=== PATIENT | male | born 1945 | race Caucasian/White ===

== ENCOUNTER 2020-03-09 11:29 | Inpatient (IN) | payer MEDICARE ==
[~2020-03-09] VITALS: Ht 170.2 cm; Wt 76.8 kg
[2020-03-09] MEDS ORDERED: NS 1,000 ML IV SCH (11:37)
--- NOTE | 2020-03-09 11:57 | REP ---
Clinical: Altered mental status . Findings: Age-related atrophy with periventricular leukomalacia and microvascular ischemic changes are appreciated. The ventricles and sulci are symmetric. Caba-white differentiation is maintained. There is no evidence for acute intracranial hemorrhage, mass/mass effect, pathology or infarction. No extra-axial fluid collection. Calvarium is intact. Paranasal sinuses and mastoid air cells are clear. Impression: Age related atrophy and microvascular ischemic changes. No acute intracranial hemorrhage, infarction, or mass/mass effect. Electronically Signed by Anoop Osorio MD 03/09/2020 11:49 A
--- NOTE | 2020-03-09 12:00 | REP ---
Clinical: Altered mental status. Technique: Axial noncontrast images from the skull base to the thoracic inlet with coronal and sagittal re-formations. Findings: Advanced multilevel degenerative changes include endplate sclerosis, osteophytosis, disc space narrowing and facet arthropathy. Moderate canal stenosis at C4-5 and C5-6 narrowing the AP diameter of the spinal canal to approximately 6.8 mm due to posterior ligamentous calcifications and small posterior osteophytes. Straightening of normal lordosis noted with stable alignment. Posterior elements and spinous processes are intact. No acute fracture / compression injury or subluxation. Impression: Multilevel degenerative spondylosis. No acute fracture / compression injury or subluxation. Electronically Signed by Anoop Osorio MD 03/09/2020 11:51 A
[2020-03-09 12:14] LABS: VENOUS BASE EXCESS -4.5 (-2.0-2.0); VENOUS HCO3 21.8 MEQ/L (23.0-27.0); VENOUS O2 SATURATION 55.3 % (60.0-80.0); VENOUS PARTIAL PRESSURE CO2 44.3 mmHg (38.0-50.0); VENOUS PARTIAL PRESSURE O2 31.2 mmHg (30.0-50.0); VENOUS STANDARD HCO3 19.6 MEQ/L; VENOUS TOTAL CO2 23.2 MEQ/L (24.0-28.0)
[2020-03-09 12:18] LABS: BASO % 0.1 % (0.0-1.0); HEMATOCRIT 53.6 % (42.0-52.0); HEMOGLOBIN 18.3 g/dl (13.5-17.5); LYMPH # 1.1 10^3/uL (1.5-5.0); MEAN CORPUSCULAR HEMOGLOBIN 28.7 pg (27.0-33.0); MEAN CORPUSCULAR HGB CONC 34.1 g/dl (32.0-36.5); MONO # 1.4 10^3/uL (0.0-0.8); MONO % 9.9 % (0.0-5.0); NEUTROPHILS # 11.5 10^3/uL (1.5-8.5); NEUTROPHILS % 80.7 % (36.0-66.0); PLATELET COUNT, AUTOMATED 320 10^3/uL (150-450); RED BLOOD COUNT 6.38 10^6/uL (4.30-6.10); WHITE BLOOD COUNT 14.2 10^3/uL (4.0-10.0)
[2020-03-09 12:43] LABS: OSMOLALITY SERUM 320 MOSM/KG (280-301)
[2020-03-09] MEDS ORDERED: NS 1,000 ML IV ONE (12:45)
[2020-03-09 12:54] LABS: ALBUMIN 3.3 GM/DL (3.2-5.2); ALT/SGPT 26 U/L (12-78); BILIRUBIN,DIRECT 1.1 MG/DL (0.0-0.2); BILIRUBIN,TOTAL 1.9 MG/DL (0.2-1.0); TOTAL PROTEIN 8.1 GM/DL (6.4-8.2)
--- NOTE | 2020-03-09 12:58 | REP ---
Clinical: Altered mental status . Comparison: None . Findings: The mediastinum and cardiac silhouette are stable and within normal limits for portable technique. The lung marlow are clear without acute consolidation, effusion, or pneumothorax. Skeletal structures are intact. Impression: No acute cardiopulmonary process appreciated. Electronically Signed by Anoop Osorio MD 03/09/2020 12:49 P
[2020-03-09] MEDS ORDERED: ISOVUE-370 76% 100ML VIAL As Ordered ONE (13:13)
[2020-03-09 13:22] LABS: AMPHETAMINES LEVEL URINE NEGATIVE (NEGATIVE); BARBITURATES URINE NEGATIVE (NEGATIVE); BENZODIAZEPINES URINE NEGATIVE (NEGATIVE); CANNABINOIDS URINE NEGATIVE (NEGATIVE); COCAINE METABOLITE URINE NEGATIVE (NEGATIVE); METHADONE URINE NEGATIVE (NEGATIVE); OPIATES URINE NEGATIVE (NEGATIVE); PHENCYCLIDINE URINE NEGATIVE (NEGATIVE)
--- NOTE | 2020-03-09 13:48 | REP ---
Clinical: Pyelonephritis. Abdominal pain. Technique: Axial contrast enhanced images from the lung bases to the pubic symphysis using 100 ml Isovue 370 intravenous contrast material with coronal and sagittal re-formations. Findings: Lung bases are clear. Liver, spleen, pancreas, gallbladder, and bilateral adrenal glands are normal. The kidneys demonstrate age-related cortical thinning along with few scattered bilateral simple cysts and mild chronic perinephric stranding. No hydronephrosis. The enteric system is without obstruction or acute inflammatory process. Normal terminal ileum and appendix are identified in the right lower quadrant. Few scattered sigmoid diverticula noted without acute diverticulitis. Pelvis demonstrates mild bladder wall thickening and prostatomegaly. No pelvic fluid. No ascites. No free air. No adenopathy. Abdominal aorta without aneurysm or dissection. Musculoskeletal structures demonstrate age-related degenerative changes without acute process. Impression: 1. Urinary tract system demonstrates age-related renal changes and simple cysts without CT evidence for acute pyelonephritis. The bladder demonstrates mild wall thickening consistent with chronic outlet obstruction. Prostatomegaly noted. 2. Few scattered sigmoid diverticula without acute diverticulitis. 3. No acute abdominopelvic pathology appreciated. Electronically Signed by Anoop Osorio MD 03/09/2020 01:40 P
[2020-03-09 13:57] LABS: ACETAMINOPHEN LEVEL < 2.0 UG/ML (10.0-30.0); ETHYL ALCOHOL (ETHANOL) < 0.003 % (0.000-0.010)
[2020-03-09] MEDS ORDERED: GLUCAGON INJ 1MG VIAL SC PRN (16:30)
[2020-03-09] MEDS ORDERED: DEXTROSE 50% 50 ML SYRINGE IV PRN (16:30)
[2020-03-09] MEDS ORDERED: GLUCOSE 4GM CHEW TABLET PO PRN (16:30)
[2020-03-09] MEDS: HumaLOG INSULIN (NovoLOG) PER UNIT SC SCH ×2 (17:30→20:20)
--- NOTE | 2020-03-09 17:51 | ECGEPIP ---
[facility] - ED Test Date: 2020-03-09 Pat Name: SIDRA LOZANO Department: Room: - Gender: Male C T Tech: TC : 1945 Requested By: Ting Kim Order Number: [id number] Reading MD: Ting Kim Measurements Intervals [place] Rate: 149 P: [place]: 0 QRS: 19 QRSD: 86 T: -2 QT: 276 QTc: 435 Interpretive Statements sinus tachycardia vs atrial flutter No prior NONSPECIFIC ST & T-WAVE ABNORMALITY ABNORMAL RHYTHM ECG Electronically Signed on 03-09-2020 17:51:35 EDT by Ting Kim
--- NOTE | 2020-03-09 17:54 | ECGEPIP ---
[facility] - ED Test Date: 2020-03-09 Pat Name: SIDRA LOZANO Department: Room: - Gender: Male Plant Inspector: JFLUCY : 1945 Requested By: Sukhi Cespedes Order Number: [id number] Reading MD: Ting Kim Measurements Intervals [place] Rate: 101 P: [place]: 0 QRS: 76 QRSD: 90 T: 57 QT: 336 QTc: 436 Interpretive Statements baseline artifact excessive - sinus with PACs vs atrial fib SEPTAL MYOCARDIAL INFARCTION, PROBABLY OLD Electronically Signed on 03-09-2020 17:53:47 EDT by Ting Kim
[2020-03-09 18:01] VITALS: BP 136/79
[2020-03-09] MEDS: NS 1,000 ML IV SCH ×2 (18:08→22:34)
[2020-03-09] MEDS: cefTRIAXone SOD 2 GM in D5W MINI-BAG PLUS 50 ML IV SCH (18:16)
[2020-03-09 20:00] VITALS: BP 102/68
[2020-03-09] MEDS: DOCUSATE SODIUM 100 MG CAP PO SCH (20:19)
--- NOTE | 2020-03-09 20:27 | HPEPDOC ---
General Date of Admission 03/09/20 Date of Service: Mar 09, 2020 Chief Complaint The patient is a 75-year-old male admitted with a reason for visit of [facility]. 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 He reports that he fell in the middle of night when he had gone to the bathroom. Says he was reaching for something and then he found himself on the floor. Denies loss of consciousness. Says he started calling for help when he heard his neighbor outside. Neighbors found him on the floor in the bathroom soiled in stool and urine and called the EMS. He denies any injury. On arrival to the ED he was disheveled, soiled, long unkept nails. He was confused knew only his name could not him any history. On my interview he could tell me that he was in the hospital but could not tell me where or what was the name. He could tell me his home address in [facility], He told me he spends From January to Jul at is trailer in [place] for the past 15 years and goes back an forth to [place] to take take of the house, cut the grass. He drives. he tells me his PMD is at [facility]. Told me he ran out of his blood pressure and diabetes medicine 1 month ago. He knew it was 2019 but told me it was . His history is unreliable. Work up in the ED showed elevated lactate, dehydration, UTI, elevated blood glucose. He was admitted for UTI, dehydration, acute metabolic encephalopathy. 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 Both ) Social History * Smoker: Denies Alcohol: Denies Drugs: denies A-FIB/CHADSVASC A-FIB History Current/History of A-Fib/PAF?: No Review of Systems Constitutional: Denies: Chills, Fever, Night Sweats Eyes: Denies: Pain, Vision change ENT: Denies: Head Aches, Ear Pain, Dysphagia Skin: Denies: Rash, Lesions, Breakdown Pulmonary: Denies: Dyspnea, Cough Cardiovascular: Denies: Chest Pain, Palpitations, Orthopnea, Paroxysmal Noc. Dyspnea, Lt Headedness Gastrointestinal: Denies: Nausea, Vomiting, Abdominal Pain, Diarrhea Genitourinary: Denies: Dysuria, Frequency, Incontinence, Retention Hematologic: Denies: Bruising, Bleeding Excessively Musculoskeletal: Denies: Neck Pain, Back Pain, Joint Pain, Muscle Pain Psych: Reports: Memory Issues Physical Examination General Exam: Positive: Alert, Cooperative, No Acute Distress Eye Exam: Positive: PERRLA, Conjunctiva & lids normal, EOMI; Negative: Sclera icteric ENT Exam: Positive: Atraumatic, Mucous membr. moist/pink, Pharynx Normal Neck Exam: Positive: Supple; Negative: JVD, thyromegaly Chest Exam: Positive: Clear to auscultation, Normal air movement Heart Exam: Positive: Rate Normal, Irregular Rhythm, Normal S1, Normal S2 Telemetry: Positive: Atrial fibrillation Abdomen Exam: Positive: Normal bowel sounds, Soft; Negative: Tenderness, Hepatospenomegaly Extremity Exam: Negative: Clubbing, Cyanosis, Edema Skin Exam: Positive: Breakdown (on randy scrotal skin at eh bottom), Other skin issue (redness on the sacram and the groin) Vital Signs Vital Signs Date Time Temp Pulse Resp B/P (MAP) Pulse Ox O2 Delivery O2 Flow Rate FiO2 03/09/20 15:45 93 16 106/50 (68) 97 Room Air 03/09/20 11:59 97.3 Laboratory Data Labs 24H Laboratory Tests 2 03/09/20 11:37: Osmolality 320H, Total Bilirubin 1.9H, Direct Bilirubin 1.1H, Aspartate Amino Transf (AST/SGOT) 34, Alanine Aminotransferase (ALT/SGPT) 26, Alkaline Phosphatase 106, Ammonia 13, Total Protein 8.1, Albumin 3.3, Albumin/Globulin Ratio 0.7, Thyroid Stimulating Hormone (TSH) 1.010, Salicylates Level 3.0L, Acetaminophen Level < 2.0L, Ethyl Alcohol Level < 0.003 03/09/20 11:56: Bedside Glucose (Misc Panel) 265H 03/09/20 11:58: POC Lactate (Misc Panel) 3.57*H 03/09/20 12:03: POC Glucose (Misc Panel) 245H, POC Sodium (Misc Panel) 140, POC Potassium (Misc Panel) 3.9, POC Chloride (Misc Panel) 101, POC Total CO2 (Misc Panel) 22.0L, POC Blood Urea Nitrogen (Misc Panel 51H, POC Ionized Calcium (Misc Panel) 4.8, POC Creatinine (Misc Panel) 1.1, POC Hematocrit (Misc Panel) 55.0H 03/09/20 12:04: POC Troponin I (Misc) 0.00 03/09/20 12:05: Blood Gas Bicarbonate Standard 19.6, Venous Blood pH 7.310L, Venous Blood Partial Pressure CO2 44.3, Venous Blood Partial Pressure O2 31.2, Venous Blood Total Carbon Dioxide 23.2L, Venous Blood HCO3 21.8L, Venous Blood Oxygen Saturation 55.3L, Venous Blood Base Excess -4.5L 03/09/20 12:06: Immature Granulocyte % (Auto) 1.3, Neutrophils (%) (Auto) 80.7H, Lymphocytes (%) (Auto) 8.0L, Monocytes (%) (Auto) 9.9H, Eosinophils (%) (Auto) 0.0, Basophils (%) (Auto) 0.1, Neutrophils # (Auto) 11.5H, Lymphocytes # (Auto) 1.1L, Monocytes # (Auto) 1.4H, Eosinophils # (Auto) 0.0, Basophils # (Auto) 0.0, Nucleated Red Blood Cells % (auto) 0.0 03/09/20 12:42: Urine Color SEDRICK, Urine Appearance TURBIDH, Urine pH 5.0, Urine Specific [place] 1.018, Urine Protein 2+H, Urine Glucose (UA) 1+H, Urine Ketones TRACEH, Urine Blood 2+H, Urine Nitrite NEGATIVE, Urine Bilirubin NEGATIVE, Urine Urobilinogen 4.0H, Urine Leukocyte Esterase 3+H, Urine WBC (Auto) TNTCH, Urine RBC (Auto) 92H, Urine Hyaline Casts (Auto) 0, Urine Bacteria (Auto) 1+H, Urine Squamous Epithelial Cells 0, Urine Mucus (Auto) SMALL, Urine Sperm (Auto) , Urine Opiates Screen NEGATIVE, Urine Methadone Screen NEGATIVE, Urine Barbiturates Screen NEGATIVE, Urine Phencyclidine Screen NEGATIVE, Urine Amphetamines Screen NEGATIVE, Urine Benzodiazepines Screen NEGATIVE, Urine Cocaine Metabolite Screen NEGATIVE, Urine Cannabinoids Screen NEGATIVE CBC/BMP Laboratory Tests 03/09/20 12:06 Microbiology Microbiology 03/09/20 Respiratory Virus Panel (PCR) (MONY) - Final, Complete 03/09/20 Urine Culture, Received Pending Assessment/Plan 75 year old male with past medical 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 He reports that he fell in the m iddle of night when he had gone to the bathroom. Says he was reaching for something and then he found himself on the floor. Denies loss of consciousness. Says he started calling for help when he heard his neighbor outside. Neighbors found him on the floor in the bathroom soiled in stool and urine and called the EMS. Work up in the ED showed elevated lactate, dehydration, UTI, elevated blood glucose. He was admitted for UTI, dehydration, acute metabolic encephalopathy. Dehydration elevated BUN, elevated hematocrit will give IVF UTI/ contaminated urine Dirty UA though denies any symptoms and was soiled when he came in. cultures sent. will give ceftriaxone Lactacidosis due to dehydration IVF Acute metabolic encephalopathy Vs delirium on the back ground of mild dementia due to dehydration and possible infection Abnormal EKG afib vs sinus with PACs. there are lots of artifacts will get another one tomorrow now rate around 90 to 100. Diabetes lispro sliding scale Hypertension BP not elevated at present. Plan / VTE VTE Prophylaxis Ordered?: Yes STEPHAN WALKER MD Mar 09, 2020 17:03
[2020-03-09] MEDS: NYSTATIN 100,000 UNITS/GM TOPICAL PWD 15 GM TOP SCH (21:00)
[2020-03-10] VITALS: BP 133/73
[2020-03-10 04:00] VITALS: BP 142/70
[2020-03-10 06:52] LABS: BASO % 0.2 % (0.0-1.0); EOS # 0.1 10^3/uL (0.0-0.5); EOS % 0.8 % (0.0-3.0); HEMATOCRIT 42.2 % (42.0-52.0); LYMPH # 1.6 10^3/uL (1.5-5.0); LYMPH % 14.6 % (24.0-44.0); MEAN CORPUSCULAR HEMOGLOBIN 28.7 pg (27.0-33.0); MEAN CORPUSCULAR HGB CONC 34.4 g/dl (32.0-36.5); MEAN CORPUSCULAR VOLUME 83.6 fl (80.0-96.0); MONO # 1.3 10^3/uL (0.0-0.8); MONO % 11.2 % (0.0-5.0); NEUTROPHILS # 8.1 10^3/uL (1.5-8.5); NEUTROPHILS % 72.4 % (36.0-66.0); PLATELET COUNT, AUTOMATED 232 10^3/uL (150-450); RED BLOOD COUNT 5.05 10^6/uL (4.30-6.10); WHITE BLOOD COUNT 11.2 10^3/uL (4.0-10.0)
[2020-03-10 07:07] LABS: HEMOGLOBIN 14.5 g/dl (13.5-17.5)
[2020-03-10 07:16] LABS: BLOOD UREA NITROGEN 32 MG/DL (7-18); CALCIUM LEVEL 8.4 MG/DL (8.8-10.2); CARBON DIOXIDE LEVEL 23 MEQ/L (21-32); CHLORIDE LEVEL 105 MEQ/L (98-107); CREATININE FOR GFR 0.84 MG/DL (0.70-1.30); GLOMERULAR FILTRATION RATE > 60.0 (>42); GLUCOSE, FASTING 235 MG/DL (70-100); POTASSIUM SERUM 3.4 MEQ/L (3.5-5.1); SODIUM LEVEL 138 MEQ/L (136-145)
[2020-03-10 07:33] VITALS: BP 112/64
[2020-03-10] MEDS: HumaLOG INSULIN (NovoLOG) PER UNIT SC SCH ×4 (09:13→21:00)
[2020-03-10] MEDS: ENOXAPARIN 40MG/0.4ML SYRINGE (J1650 PER 10MG) SC SCH (09:13)
[2020-03-10] MEDS: DOCUSATE SODIUM 100 MG CAP PO SCH ×2 (09:13→20:48)
[2020-03-10] MEDS: NS 1,000 ML IV SCH (09:14)
[2020-03-10] MEDS: NYSTATIN 100,000 UNITS/GM TOPICAL PWD 15 GM TOP SCH ×2 (09:16→20:49)
[2020-03-10] MEDS ORDERED: POTASSIUM CHLORIDE 10 MEQ SR TABLET PO ONE (11:00)
--- NOTE | 2020-03-10 11:30 | IPNPDOC ---
Subjective Date Seen The patient was seen on 03/10/20. Subjective Chief Complaint/HPI More oriented today. Knows he is in a hospital in [place]. He told me that his closest per son of contact is Karen his sister in law who lives in [facility]. Says that he is very weak and cannot walk Objective Physical Examination General Exam: Positive: Alert, Cooperative, No Acute Distress Eye Exam: Positive: PERRLA, Conjunctiva & lids normal, EOMI; Negative: Sclera icteric ENT Exam: Positive: Atraumatic, Mucous membr. moist/pink, Pharynx Normal Neck Exam: Positive: Supple; Negative: JVD, thyromegaly Chest Exam: Positive: Clear to auscultation, Normal air movement Heart Exam: Positive: Rate Normal, Irregular Rhythm, Normal S1, Normal S2 Telemetry: Positive: Atrial fibrillation Abdomen Exam: Positive: Normal bowel sounds, Soft; Negative: Tenderness, Hepatospenomegaly Extremity Exam: Negative: Clubbing, Cyanosis, Edema Skin Exam: Positive: Breakdown (on randy scrotal skin at eh bottom), Other skin issue (redness on the sacram and the groin) Assessment /Plan Assessment 75 year old male with past medical history 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 He reports that he fell in the middle of night when he had gone to the bathroom. Says he was reaching for something and then he found himself on the floor. Denies loss of consciousness. Says he started calling for help when he heard his neighbor outside. Neighbors found him on the floor in the bathroom soiled in stool and urine and called the EMS. Work up in the ED showed elevated lactate, dehydration, UTI, elevated blood glucose. He was admitted for UTI, dehydration, acute metabolic encephalopathy. Dehydration corrected, IV stopped UTI/ contaminated urine Dirty UA though denies any symptoms and was soiled when he came in. cultures sent. ceftriaxone Lactacidosis due to dehydration Acute metabolic encephalopathy Vs delirium on the back ground of mild dementia due to dehydration and possible infection Abnormal EKG afib vs sinus with PACs. There are lots of artifacts New EKG shows ectopic atrial rhythm. now rate around 70 to 80 Diabetes lispro sliding scale Hypertension BP not elevated at present. Generalized deconditioning PT and OT Plan/VTE VTE Prophylaxis Ordered?: Yes VS, I&O, 24H, Fishbone Vital Signs/I&O Vital Signs Date Time Temp Pulse Resp B/P (MAP) Pulse Ox O2 Delivery O2 Flow Rate FiO2 03/10/20 07:33 97.6 74 20 112/64 (80) 97 Room Air I&O- Last 24 Hours up to 6 AM 03/10/20 06:00 Intake Total 1800 ml Output Total 0 ml Balance 1800 ml Laboratory Data 24H LABS Laboratory Tests 2 03/09/20 11:37: Osmolality 320H, Total Bilirubin 1.9H, Direct Bilirubin 1.1H, Aspartate Amino Transf (AST/SGOT) 34, Alanine Aminotransferase (ALT/SGPT) 26, Alkaline Phosphatase 106, Ammonia 13, Total Protein 8.1, Albumin 3.3, Albumin/Globulin Ratio 0.7, Thyroid Stimulating Hormone (TSH) 1.010, Salicylates Level 3.0L, Acetaminophen Level < 2.0L, Ethyl Alcohol Level < 0.003 03/09/20 11:56: Bedside Glucose (Misc Panel) 265H 03/09/20 11:58: POC Lactate (Misc Panel) 3.57*H 03/09/20 12:03: POC Glucose (Misc Panel) 245H, POC Sodium (Misc Panel) 140, POC Potassium (Misc Panel) 3.9, POC Chloride (Misc Panel) 101, POC Total CO2 (Misc Panel) 22.0L, POC Blood Urea Nitrogen (Misc Panel 51H, POC Ionized Calcium (Misc Panel) 4.8, POC Creatinine (Misc Panel) 1.1, POC Hematocrit (Misc Panel) 55.0H 03/09/20 12:04: POC Troponin I (Misc) 0.00 03/09/20 12:05: Blood Gas Bicarbonate Standard 19.6, Venous Blood pH 7.310L, Venous Blood Partial Pressure CO2 44.3, Venous Blood Partial Pressure O2 31.2, Venous Blood Total Carbon Dioxide 23.2L, Venous Blood HCO3 21.8L, Venous Blood Oxygen Saturation 55.3L, Venous Blood Base Excess -4.5L 03/09/20 12:06: Immature Granulocyte % (Auto) 1.3, Neutrophils (%) (Auto) 80.7H, Lymphocytes (%) (Auto) 8.0L, Monocytes (%) (Auto) 9.9H, Eosinophils (%) (Auto) 0.0, Basophils (%) (Auto) 0.1, Neutrophils # (Auto) 11.5H, Lymphocytes # (Auto) 1.1L, Monocytes # (Auto) 1.4H, Eosinophils # (Auto) 0.0, Basophils # (Auto) 0.0, Nucleated Red Blood Cells % (auto) 0.0 03/09/20 12:42: Urine Color SEDRICK, Urine Appearance TURBIDH, Urine pH 5.0, Urine Specific [place] 1.018, Urine Protein 2+H, Urine Glucose (UA) 1+H, Urine Ketones TRACEH, Urine Blood 2+H, Urine Nitrite NEGATIVE, Urine Bilirubin NEGATIVE, Urine Urobilinogen 4.0H, Urine Leukocyte Esterase 3+H, Urine WBC (Auto) TNTCH, Urine RBC (Auto) 92H, Urine Hyaline Casts (Auto) 0, Urine Bacteria (Auto) 1+H, Urine Squamous Epithelial Cells 0, Urine Mucus (Auto) SMALL, Urine Sperm (Auto) , Urine Opiates Screen NEGATIVE, Urine Methadone Screen NEGATIVE, Urine Barbiturates Screen NEGATIVE, Urine Phencyclidine Screen NEGATIVE, Urine Amphetamines Screen NEGATIVE, Urine Benzodiazepines Screen NEGATIVE, Urine Cocaine Metabolite Screen NEGATIVE, Urine Cannabinoids Screen NEGATIVE 03/09/20 18:09: Bedside Glucose (Misc Panel) 204H 03/09/20 18:15: Lactic Acid Followup at 4 Hours 2.0 03/09/20 20:07: Bedside Glucose (Misc Panel) 231H 03/10/20 06:11: Immature Granulocyte % (Auto) 0.8, Neutrophils (%) (Auto) 72.4H, Lymphocytes (%) (Auto) 14.6L, Monocytes (%) (Auto) 11.2H, Eosinophils (%) (Auto) 0.8, Basophils (%) (Auto) 0.2, Neutrophils # (Auto) 8.1, Lymphocytes # (Auto) 1.6, Monocytes # (Auto) 1.3H, Eosinophils # (Auto) 0.1, Basophils # (Auto) 0.0, Nucleated Red Blood Cells % (auto) 0.0, Anion Gap 10, Glomerular Filtration Rate > 60.0, Calcium Level 8.4L 03/10/20 07:23: Lactic Acid Level 1.5 CBC/BMP Laboratory Tests 03/09/20 12:06 03/10/20 06:11 Microbiology Microbiology 03/09/20 Blood Culture, Received Pending 03/09/20 Respiratory Virus Panel (PCR) (MONY) - Final, Complete 03/09/20 Urine Culture, Received Pending STEPHAN WALKER MD Mar 10, 2020 11:30
--- NOTE | 2020-03-10 11:31 | ECGEPIP ---
[facility] Test Date: 2020-03-10 Pat Name: SIDRA LOZANO Department: Room: Y3439-15 Gender: Male Ceo & Board Director: OFELIA : 1945 Requested By: STEPHAN WALKER Order Number: [id number] Reading MD: John Riley Measurements Intervals [place] Rate: 80 P: 247 MT: 160 QRS: 17 QRSD: 95 T: 19 QT: 354 QTc: 409 Interpretive Statements ECTOPIC ATRIAL RHYTHM NONSPECIFIC T-WAVE ABNORMALITY ABNORMAL RHYTHM ECG Last tracing on 03/09/20 at 14:31. PACs were noted and there is now better R wave p progression. Electronically Signed on 03-10-2020 11:30:48 EDT by John Riley
[2020-03-10 11:46] VITALS: BP 106/63
[2020-03-10] MEDS: GLIMEPIRIDE 2 MG TAB PO SCH (13:38)
[2020-03-10 14:00] VITALS: BP 110/64
[2020-03-10] MEDS: cefTRIAXone SOD 2 GM in D5W MINI-BAG PLUS 50 ML IV SCH (18:13)
[2020-03-10 22:00] VITALS: BP 121/75
[2020-03-11 06:00] VITALS: BP 115/58
[2020-03-11 07:04] LABS: BASO % 0.3 % (0.0-1.0); EOS # 0.2 10^3/uL (0.0-0.5); EOS % 2.6 % (0.0-3.0); HEMATOCRIT 39.8 % (42.0-52.0); HEMOGLOBIN 13.3 g/dl (13.5-17.5); LYMPH # 1.5 10^3/uL (1.5-5.0); LYMPH % 20.7 % (24.0-44.0); MEAN CORPUSCULAR HEMOGLOBIN 28.1 pg (27.0-33.0); MEAN CORPUSCULAR HGB CONC 33.4 g/dl (32.0-36.5); MEAN CORPUSCULAR VOLUME 84.1 fl (80.0-96.0); MONO # 0.9 10^3/uL (0.0-0.8); MONO % 12.8 % (0.0-5.0); NEUTROPHILS # 4.5 10^3/uL (1.5-8.5); NEUTROPHILS % 62.6 % (36.0-66.0); PLATELET COUNT, AUTOMATED 217 10^3/uL (150-450); RED BLOOD COUNT 4.73 10^6/uL (4.30-6.10); WHITE BLOOD COUNT 7.2 10^3/uL (4.0-10.0)
[2020-03-11 07:27] LABS: BLOOD UREA NITROGEN 22 MG/DL (7-18); CALCIUM LEVEL 8.6 MG/DL (8.8-10.2); CARBON DIOXIDE LEVEL 26 MEQ/L (21-32); CHLORIDE LEVEL 105 MEQ/L (98-107); CREATININE FOR GFR 0.77 MG/DL (0.70-1.30); GLOMERULAR FILTRATION RATE > 60.0 (>42); GLUCOSE, FASTING 84 MG/DL (70-100); POTASSIUM SERUM 3.8 MEQ/L (3.5-5.1); SODIUM LEVEL 137 MEQ/L (136-145)
[2020-03-11] MEDS: HumaLOG INSULIN (NovoLOG) PER UNIT SC SCH ×4 (07:30→20:54)
[2020-03-11] MEDS: NYSTATIN 100,000 UNITS/GM TOPICAL PWD 15 GM TOP SCH ×2 (09:11→20:09)
[2020-03-11] MEDS: ENOXAPARIN 40MG/0.4ML SYRINGE (J1650 PER 10MG) SC SCH (09:11)
[2020-03-11] MEDS: DOCUSATE SODIUM 100 MG CAP PO SCH ×2 (09:11→20:09)
[2020-03-11] MEDS: GLIMEPIRIDE 2 MG TAB PO SCH (09:11)
--- NOTE | 2020-03-11 12:18 | IPNPDOC ---
Subjective Date Seen The patient was seen on 03/11/20. Subjective Chief Complaint/HPI Complains of generalized weakness. denies any other complaints. Objective Physical Examination General Exam: Positive: Alert, Cooperative, No Acute Distress Eye Exam: Positive: PERRLA, Conjunctiva & lids normal, EOMI; Negative: Sclera icteric ENT Exam: Positive: Atraumatic, Mucous membr. moist/pink, Pharynx Normal Neck Exam: Positive: Supple; Negative: JVD, thyromegaly Chest Exam: Positive: Clear to auscultation, Normal air movement Heart Exam: Positive: Rate Normal, Irregular Rhythm, Normal S1, Normal S2 Telemetry: Positive: Atrial fibrillation Abdomen Exam: Positive: Normal bowel sounds, Soft; Negative: Tenderness, Hepatospenomegaly Extremity Exam: Negative: Clubbing, Cyanosis, Edema Skin Exam: Positive: Breakdown (on randy scrotal skin at bottom), Other skin issue (redness on the sacram and the groin) Assessment /Plan Assessment 75 year old male with past medical history of 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 He reports that he fell in the middle of night when he had gone to the bathroom. Says he was reaching for something and then he found himself on the floor. Denies loss of consciousness. Says he started calling for help when he heard his neighbor outside. Neighbors found him on the floor in the bathroom soiled in stool and urine and called the EMS. Work up in the ED showed elevated lactate, dehydration, UTI, elevated blood glucose. He was admitted for UTI, dehydration, acute metabolic encephalopathy. Patient has daughter Crystal lives in [place] . As per her patient has dementia. Dehydration corrected UTI/ contaminated urine Dirty UA though denies any symptoms and was soiled when he came in. cultures E faecalis Changed to ampicillin Lactacidosis due to dehydration Acute metabolic encephalopathy on the back ground of dementia due to dehydration and possible infection As per Crystal his was diagnosed with dementia several years ago. Abnormal EKG afib vs sinus with PACs. There are lots of artifacts New EKG shows ectopic atrial rhythm. now rate around 70 to 80 Dementia As per EMS noted his home was dirty with stool all over, He was found in the bathroom soiled with Feces unknown ho long he was down he claims about 1 to 2 hours. will consult PFS Diabetes lispro sliding scale Hypertension BP not elevated at present. no meds . Dementia was very disheveled and soiled on presentation says eats at the diner or TV diners. Fall at home Generalized deconditioning and gait instability PT and OT Plan/VTE VTE Prophylaxis Ordered?: Yes VS, I&O, 24H, Fishbone Vital Signs/I&O Vital Signs Date Time Temp Pulse Resp B/P (MAP) Pulse Ox O2 Delivery O2 Flow Rate FiO2 03/11/20 06:00 99.1 75 16 115/58 (77) 95 Room Air I&O- Last 24 Hours up to 6 AM 03/11/20 07:00 Intake Total 1130 ml Output Total 0 ml Balance 1130 ml Laboratory Data 24H LABS Laboratory Tests 2 03/10/20 07:23: Lactic Acid Level 1.5 03/10/20 11:16: Bedside Glucose (Misc Panel) 183H 03/10/20 16:12: Bedside Glucose (Misc Panel) 220H 03/10/20 20:26: Bedside Glucose (Misc Panel) 127H Microbiology Microbiology 03/09/20 Blood Culture - Preliminary, Resulted No growth after 24 hours . All specim... 03/09/20 Respiratory Virus Panel (PCR) (MONY) - Final, Complete 03/09/20 Urine Culture, Received Pending STEPHAN WALKER MD Mar 11, 2020 06:37
[2020-03-11 14:00] VITALS: BP 129/75
[2020-03-11] MEDS: AMPICILLIN SOD 1 GM in D5W 50 ML IV SCH ×2 (14:40→20:09)
[2020-03-11] MEDS ORDERED: FLEET ENEMA PR PRN (16:45)
[2020-03-11 22:00] VITALS: BP 125/66
[2020-03-12] MEDS: AMPICILLIN SOD 1 GM in D5W 50 ML IV SCH ×4 (01:34→19:55)
[2020-03-12 06:00] VITALS: BP 133/75
[2020-03-12 06:35] LABS: BASO % 0.4 % (0.0-1.0); EOS # 0.1 10^3/uL (0.0-0.5); EOS % 1.8 % (0.0-3.0); HEMATOCRIT 40.5 % (42.0-52.0); HEMOGLOBIN 13.8 g/dl (13.5-17.5); LYMPH # 1.7 10^3/uL (1.5-5.0); LYMPH % 21.5 % (24.0-44.0); MEAN CORPUSCULAR HEMOGLOBIN 28.7 pg (27.0-33.0); MEAN CORPUSCULAR HGB CONC 34.1 g/dl (32.0-36.5); MEAN CORPUSCULAR VOLUME 84.2 fl (80.0-96.0); MONO % 12.4 % (0.0-5.0); NEUTROPHILS # 4.8 10^3/uL (1.5-8.5); NEUTROPHILS % 62.7 % (36.0-66.0); PLATELET COUNT, AUTOMATED 205 10^3/uL (150-450); RED BLOOD COUNT 4.81 10^6/uL (4.30-6.10); WHITE BLOOD COUNT 7.7 10^3/uL (4.0-10.0)
[2020-03-12 06:59] LABS: BLOOD UREA NITROGEN 17 MG/DL (7-18); CALCIUM LEVEL 8.6 MG/DL (8.8-10.2); CARBON DIOXIDE LEVEL 24 MEQ/L (21-32); CHLORIDE LEVEL 105 MEQ/L (98-107); CREATININE FOR GFR 0.68 MG/DL (0.70-1.30); GLOMERULAR FILTRATION RATE > 60.0 (>42); GLUCOSE, FASTING 156 MG/DL (70-100); POTASSIUM SERUM 3.9 MEQ/L (3.5-5.1); SODIUM LEVEL 137 MEQ/L (136-145)
[2020-03-12] MEDS: ENOXAPARIN 40MG/0.4ML SYRINGE (J1650 PER 10MG) SC SCH (08:46)
[2020-03-12] MEDS: GLIMEPIRIDE 2 MG TAB PO SCH (08:46)
[2020-03-12] MEDS: DOCUSATE SODIUM 100 MG CAP PO SCH ×2 (08:46→19:55)
[2020-03-12] MEDS: NYSTATIN 100,000 UNITS/GM TOPICAL PWD 15 GM TOP SCH ×2 (08:47→19:55)
[2020-03-12] MEDS: HumaLOG INSULIN (NovoLOG) PER UNIT SC SCH (08:47)
--- NOTE | 2020-03-12 11:12 | IPNPDOC ---
Subjective Date Seen The patient was seen on 03/12/20. Subjective Chief Complaint/HPI Patient seen at bedside today. Alert and awake . Oriented to name and knows he is in hospital could not tell me today where the hospital is. Told me it was 1989. Does not remember getting an enema yesterday. Could not tell me if he had a bowel movement. Does not remember what he had for breakfast. Objective Physical Examination General Exam: Positive: Alert, Cooperative, No Acute Distress Eye Exam: Positive: PERRLA, Conjunctiva & lids normal, EOMI; Negative: Sclera icteric ENT Exam: Positive: Atraumatic, Mucous membr. moist/pink, Pharynx Normal Neck Exam: Positive: Supple; Negative: JVD, thyromegaly Chest Exam: Positive: Clear to auscultation, Normal air movement Heart Exam: Positive: Rate Normal, Irregular Rhythm, Normal S1, Normal S2 Telemetry: Positive: Atrial fibrillation Abdomen Exam: Positive: Normal bowel sounds, Soft; Negative: Tenderness, Hepatospenomegaly Extremity Exam: Negative: Clubbing, Cyanosis, Edema Skin Exam: Positive: Breakdown (on the scrotal skin at the bottom), Other skin issue (redness on the sacrum and the groin) Neuro Exam: Positive: Normal Speech, Strength at 5/5 X4 ext, Normal Tone Assessment /Plan Assessment 75 year old male with past medical history of 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 He reports that he fell in the middle of night when he had gone to the bathroom. Says he was reaching for something and then he found himself on the floor. Denies loss of consciousness. Says he started calling for help when he heard his neighbor outside. Neighbors found him on the floor in the bathroom soiled in stool and urine and called the EMS. Work up in the ED showed elevated lactate, dehydration, UTI, elevated blood glucose. He was admitted for UTI, dehydration, acute metabolic encephalopathy. Patient has daughter Crystal lives in [place] . As per her patient has dementia. Dementia was very disheveled and soiled on presentation, Home dirty as per EMS. says eats at the diner or TV diners. lives alone PFS to help with discharge planning. UTI/ contaminated urine Dirty UA though denies any symptoms and was soiled when he came in. cultures E faecalis could be contamination however unsure so will treat. Changed to ampicillin Dehydration corrected Lactacidosis due to dehydration Acute metabolic encephalopathy on the back ground of dementia due to dehydration and possible infection As per Crystal his was diagnosed with dementia several years ago. Abnormal EKG afib vs sinus with PACs. There are lots of artifacts New EKG shows ectopic atrial rhythm. now rate around 70 to 80 Diabetes glimepiride Hypertension BP not elevated at present. no meds . Fall at home Generalized deconditioning and gait instability PT and OT Plan/VTE VTE Prophylaxis Ordered?: Yes VS, I&O, 24H, Fishbone Vital Signs/I&O Vital Signs Date Time Temp Pulse Resp B/P (MAP) Pulse Ox O2 Delivery O2 Flow Rate FiO2 03/12/20 06:00 97.3 66 16 133/75 (94) 99 Room Air I&O- Last 24 Hours up to 6 AM 03/12/20 06:00 Intake Total 1850 ml Output Total 0 ml Balance 1850 ml Laboratory Data 24H LABS Laboratory Tests 2 03/11/20 11:32: Bedside Glucose (Misc Panel) 170H 03/11/20 16:29: Bedside Glucose (Misc Panel) 139H 03/11/20 20:43: Bedside Glucose (Misc Panel) 117H 03/12/20 05:35: Immature Granulocyte % (Auto) 1.2, Neutrophils (%) (Auto) 62.7, Lymphocytes (%) (Auto) 21.5L, Monocytes (%) (Auto) 12.4H, Eosinophils (%) (Auto) 1.8, Basophils (%) (Auto) 0.4, Neutrophils # (Auto) 4.8, Lymphocytes # (Auto) 1.7, Monocytes # (Auto) 1.0H, Eosinophils # (Auto) 0.1, Basophils # (Auto) 0.0, Nucleated Red Blood Cells % (auto) 0.0, Anion Gap 8, Glomerular Filtration Rate > 60.0, Calcium Level 8.6L CBC/BMP Laboratory Tests 03/12/20 05:35 Microbiology Microbiology 03/09/20 Blood Culture - Preliminary, Resulted No Growth after 48 hours. All Specime... 03/09/20 Respiratory Virus Panel (PCR) ([facility]) - Final, Complete 03/09/20 Urine Culture - Final, Complete Enterococcus Faecalis STEPHAN WALKER MD Mar 12, 2020 11:12
[2020-03-12 14:00] VITALS: BP 130/76
--- NOTE | 2020-03-12 19:35 | ECHO ---
DATE OF PROCEDURE: 03/12/2020 REFERRING PHYSICIAN: Dr. Goldie Lopez INDICATION: Syncope. Height 170 cm, weight 72 kg. DIMENSIONS: IVS: 1.3 LV: 3.7 LVPW: 1.3 LA: 3.7 Aorta: 2.8 IVC: 1.0 Mitral E wave velocity: 93 A wave: 96 E prime septal: 6.1 E prime lateral: 8.1 FINDINGS: The study is of acceptable technical quality. The patient is in sinus rhythm. Left ventricle is normal size. Mild left ventricular hypertrophy is noted. Overall likely normal left ventricular (LV) systolic function based on somewhat limited views. Estimated left ventricular ejection fraction (LVEF) around 65-70%. Right ventricle is normal size and systolic function. Both atria appear normal. Aortic valve is mildly sclerotic but has three cusps and preserved mobility. Mitral valve appears normal. Tricuspid valve also appears normal. Pulmonic valve was not well seen. No pericardial effusion is noted. Inferior vena cava is normal size. Aortic root is normal. Aortic arch and an abdominal aorta were not well seen. Doppler interrogation reveals competent aortic valve. There is trace mitral insufficiency and no significant tricuspid insufficiency. Mitral inflow pattern and tissue Doppler imaging of mitral annulus revealed likely grade 1 diastolic dysfunction. CONCLUSIONS: 1. Study is of acceptable technical quality, the patient is in sinus rhythm. 2. Normal LV size with mild left ventricular hypertrophy (LVH), preserved LV systolic function and grade 1 diastolic dysfunction. 3. No hemodynamically significant valvular disease. 5. Likely normal central venous pressure. 6. Unable to estimate pulmonary artery pressure. COMMENT: Study does not provide obvious explanation for syncopal event.
[2020-03-12 22:00] VITALS: BP 140/73
[2020-03-13] MEDS: AMPICILLIN SOD 1 GM in D5W 50 ML IV SCH ×4 (02:05→19:42)
[2020-03-13 06:00] VITALS: BP 145/75
[2020-03-13 06:33] LABS: BASO % 0.4 % (0.0-1.0); EOS # 0.2 10^3/uL (0.0-0.5); EOS % 2.4 % (0.0-3.0); HEMATOCRIT 42.2 % (42.0-52.0); HEMOGLOBIN 14.2 g/dl (13.5-17.5); LYMPH # 1.7 10^3/uL (1.5-5.0); LYMPH % 22.2 % (24.0-44.0); MEAN CORPUSCULAR HGB CONC 33.6 g/dl (32.0-36.5); MEAN CORPUSCULAR VOLUME 86.1 fl (80.0-96.0); MONO % 12.8 % (0.0-5.0); NEUTROPHILS # 4.8 10^3/uL (1.5-8.5); NEUTROPHILS % 60.8 % (36.0-66.0); PLATELET COUNT, AUTOMATED 206 10^3/uL (150-450); WHITE BLOOD COUNT 7.8 10^3/uL (4.0-10.0)
[2020-03-13 06:45] LABS: HEMOGLOBIN A1c 9.4 %
[2020-03-13 06:57] LABS: BLOOD UREA NITROGEN 15 MG/DL (7-18); CALCIUM LEVEL 8.9 MG/DL (8.8-10.2); CARBON DIOXIDE LEVEL 30 MEQ/L (21-32); CHLORIDE LEVEL 106 MEQ/L (98-107); GLOMERULAR FILTRATION RATE > 60.0 (>42); GLUCOSE, FASTING 149 MG/DL (70-100); POTASSIUM SERUM 4.1 MEQ/L (3.5-5.1); SODIUM LEVEL 142 MEQ/L (136-145)
[2020-03-13] MEDS: ENOXAPARIN 40MG/0.4ML SYRINGE (J1650 PER 10MG) SC SCH (08:19)
[2020-03-13] MEDS: DOCUSATE SODIUM 100 MG CAP PO SCH ×2 (08:19→19:42)
[2020-03-13] MEDS: NYSTATIN 100,000 UNITS/GM TOPICAL PWD 15 GM TOP SCH ×2 (08:20→19:42)
[2020-03-13] MEDS: GLIMEPIRIDE 2 MG TAB PO SCH ×2 (08:20→17:16)
[2020-03-13 14:00] VITALS: BP 116/69
--- NOTE | 2020-03-13 16:35 | IPNPDOC ---
Subjective Date Seen The patient was seen on 03/13/20. Subjective Chief Complaint/HPI No complaints today except for feeling very weak. Working with PT. Objective Physical Examination General Exam: Positive: Alert, Cooperative, No Acute Distress Eye Exam: Positive: PERRLA, Conjunctiva & lids normal, EOMI; Negative: Sclera icteric ENT Exam: Positive: Atraumatic, Mucous membr. moist/pink, Pharynx Normal Neck Exam: Positive: Supple; Negative: JVD, thyromegaly Chest Exam: Positive: Clear to auscultation, Normal air movement Heart Exam: Positive: Rate Normal, Irregular Rhythm, Normal S1, Normal S2 Telemetry: Positive: Atrial fibrillation Abdomen Exam: Positive: Normal bowel sounds, Soft; Negative: Tenderness, Hepatospenomegaly Extremity Exam: Negative: Clubbing, Cyanosis, Edema Skin Exam: Positive: Breakdown (on the scrotal skin at the bottom), Other skin issue (redness on the sacrum and the groin) Neuro Exam: Positive: Normal Speech, Strength at 5/5 X4 ext, Normal Tone Assessment /Plan Assessment 75 year old male with past medical history 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 He reports that he fell in the middle of night when he had gone to the bathroom. Says he was reaching for something and then he found himself on the floor. Denies loss of consciousness. Says he started calling for help when he heard his neighbor outside. Neighbors found him on the floor in the bathroom soiled in stool and urine and called the EMS. Work up in the ED showed elevated lactate, dehydration, UTI, elevated blood glucose. He was admitted for UTI, dehydration, acute metabolic encephalopathy. Patient has daughter Crystal lives in [place] . As per her patient has dementia. Dementia was very disheveled and soiled on presentation, Home dirty as per EMS. says eats at the diner or TV diners. lives alone [place] to help with discharge planning. UTI/ contaminated urine Dirty UA though denies any symptoms and was soiled when he came in. cultures E faecalis could be contamination however unsure so will treat. Changed to ampicillin Dehydration corrected Lactacidosis due to dehydration Acute metabolic encephalopathy on the back ground of dementia due to dehydration and possible infection As per Crystal his was diagnosed with dementia several years ago. Abnormal EKG afib vs sinus with PACs. There are lots of artifacts New EKG shows ectopic atrial rhythm. Telemetry in sinus rhythm now. ECHO: Study is of acceptable technical quality, the patient is in sinus rhythm. Normal LV size with mild left ventricular hypertrophy (LVH), preserved LV systolic function and grade 1 diastolic dysfunction. No hemodynamically significant valvular disease. Likely normal central venous pressure. Unable to estimate pulmonary artery pressure. Diabetes glimepiride Hypertension BP not elevated at present. no meds . Fall at home Generalized deconditioning and gait instability PT and OT Plan/VTE VTE Prophylaxis Ordered?: Yes VS, I&O, 24H, Fishbone Vital Signs/I&O Vital Signs Date Time Temp Pulse Resp B/P (MAP) Pulse Ox O2 Delivery O2 Flow Rate FiO2 03/13/20 14:00 97.6 82 17 116/69 (85) 97 Room Air I&O- Last 24 Hours up to 6 AM 03/13/20 06:00 Intake Total 1970 ml Balance 1970 ml Laboratory Data 24H LABS Laboratory Tests 2 03/12/20 16:36: Bedside Glucose (Misc Panel) 234H 03/12/20 21:11: Bedside Glucose (Misc Panel) 219H 03/13/20 06:13: Immature Granulocyte % (Auto) 1.4, Neutrophils (%) (Auto) 60.8, Lymphocytes (%) (Auto) 22.2L, Monocytes (%) (Auto) 12.8H, Eosinophils (%) (Auto) 2.4, Basophils (%) (Auto) 0.4, Neutrophils # (Auto) 4.8, Lymphocytes # (Auto) 1.7, Monocytes # (Auto) 1.0H, Eosinophils # (Auto) 0.2, Basophils # (Auto) 0.0, Nucleated Red Blood Cells % (auto) 0.0, Anion Gap 6L, Glomerular Filtration Rate > 60.0, Estimated Mean Plasma Glucose 223H, Hemoglobin A1c 9.4, Calcium Level 8.9 CBC/BMP Laboratory Tests 03/13/20 06:13 Microbiology Microbiology 03/09/20 Blood Culture - Preliminary, Resulted No Growth after 72 hours. All specime... 03/09/20 Respiratory Virus Panel (PCR) ([facility]) - Final, Complete 03/09/20 Urine Culture - Final, Complete Enterococcus Faecalis STEPHAN WALKER MD Mar 13, 2020 16:35
[2020-03-13 22:00] VITALS: BP 119/74
[2020-03-14] MEDS: AMPICILLIN SOD 1 GM in D5W 50 ML IV SCH ×4 (02:00→20:29)
[2020-03-14 06:00] VITALS: BP 142/80
[2020-03-14 07:35] LABS: BASO % 0.2 % (0.0-1.0); EOS # 0.2 10^3/uL (0.0-0.5); EOS % 2.4 % (0.0-3.0); HEMATOCRIT 41.8 % (42.0-52.0); HEMOGLOBIN 13.9 g/dl (13.5-17.5); LYMPH # 1.7 10^3/uL (1.5-5.0); LYMPH % 20.8 % (24.0-44.0); MEAN CORPUSCULAR HEMOGLOBIN 28.4 pg (27.0-33.0); MEAN CORPUSCULAR HGB CONC 33.3 g/dl (32.0-36.5); MEAN CORPUSCULAR VOLUME 85.5 fl (80.0-96.0); MONO # 0.8 10^3/uL (0.0-0.8); MONO % 10.1 % (0.0-5.0); NEUTROPHILS # 5.4 10^3/uL (1.5-8.5); NEUTROPHILS % 65.7 % (36.0-66.0); PLATELET COUNT, AUTOMATED 201 10^3/uL (150-450); RED BLOOD COUNT 4.89 10^6/uL (4.30-6.10); WHITE BLOOD COUNT 8.2 10^3/uL (4.0-10.0)
[2020-03-14 07:48] LABS: BLOOD UREA NITROGEN 14 MG/DL (7-18); CARBON DIOXIDE LEVEL 27 MEQ/L (21-32); CHLORIDE LEVEL 105 MEQ/L (98-107); CREATININE FOR GFR 0.68 MG/DL (0.70-1.30); GLOMERULAR FILTRATION RATE > 60.0 (>42); GLUCOSE, FASTING 154 MG/DL (70-100); POTASSIUM SERUM 3.7 MEQ/L (3.5-5.1); SODIUM LEVEL 137 MEQ/L (136-145)
[2020-03-14] MEDS: DOCUSATE SODIUM 100 MG CAP PO SCH ×2 (07:56→20:29)
[2020-03-14] MEDS: ENOXAPARIN 40MG/0.4ML SYRINGE (J1650 PER 10MG) SC SCH (07:56)
[2020-03-14] MEDS: GLIMEPIRIDE 2 MG TAB PO SCH ×2 (07:56→17:55)
[2020-03-14] MEDS: NYSTATIN 100,000 UNITS/GM TOPICAL PWD 15 GM TOP SCH ×2 (07:57→20:30)
--- NOTE | 2020-03-14 11:20 | IPNPDOC ---
Subjective Date Seen The patient was seen on 03/14/20. Subjective Chief Complaint/HPI No complaints this morning. Still very weak. as per PT he is getting fatigued very easily and can ambulate only a few feet. Objective Physical Examination General Exam: Positive: Alert, Cooperative, No Acute Distress Eye Exam: Positive: PERRLA, Conjunctiva & lids normal, EOMI; Negative: Sclera icteric ENT Exam: Positive: Atraumatic, Mucous membr. moist/pink, Pharynx Normal Neck Exam: Positive: Supple; Negative: JVD, thyromegaly Chest Exam: Positive: Clear to auscultation, Normal air movement Heart Exam: Positive: Rate Normal, Irregular Rhythm, Normal S1, Normal S2; Negative: Tachycardic, Bradycardic, Regular Rhythm, Gallops, Murmurs, Rubs Abdomen Exam: Positive: Normal bowel sounds, Soft; Negative: Tenderness, Hepatospenomegaly Extremity Exam: Negative: Clubbing, Cyanosis, Edema Skin Exam: Positive: Breakdown (on the scrotal skin at the bottom) Neuro Exam: Positive: Normal Speech, Strength at 5/5 X4 ext, Normal Tone Assessment /Plan Assessment 75 year old male with past medical history of CVA no residual weakness, diabetes, hypertension, right carotid endarterectomy who was at his trailer in [facility] where he fell down in the bathroom. He reports that he fell in the middle of night when he had gone to the bathroom. Says he was reaching for something and then he found himself on the floor. Denies loss of consciousness. Says he started calling for help when he heard his neighbor outside. Neighbors found him on the floor in the bathroom soiled in stool and urine and called the EMS. Work up in the ED showed elevated lactate, dehydration, UTI, elevated blood glucose. He was admitted for UTI, dehydration, acute metabolic encephalopathy. Patient has daughter Crystal lives in [place] . As per her patient has dementia. Dementia was very disheveled and soiled on presentation, Home dirty as per EMS. says eats at the diner or TV diners. lives alone [place] to help with discharge planning. UTI/ contaminated urine Dirty UA though denies any symptoms and was soiled when he came in. cultures E faecalis could be contamination however unsure so will treat. Changed to ampicillin Dehydration corrected Lactacidosis due to dehydration Acute metabolic encephalopathy on the back ground of dementia due to dehydration and possible infection As per Crystal his was diagnosed with dementia several years ago. Abnormal EKG afib vs sinus with PACs. There are lots of artifacts New EKG shows ectopic atrial rhythm. Telemetry in sinus rhythm now. ECHO: Study is of acceptable technical quality, the patient is in sinus rhythm. Normal LV size with mild left ventricular hypertrophy (LVH), preserved LV systolic function and grade 1 diastolic dysfunction. No hemodynamically significant valvular disease. Likely normal central venous pressure. Unable to estimate pulmonary artery pressure. Diabetes glimepiride Hypertension BP not elevated at present. no meds . Fall at home Generalized deconditioning and gait instability PT and OT Disposition: To continued rehab. Plan/VTE VTE Prophylaxis Ordered?: Yes VS, I&O, 24H, Fishbone Vital Signs/I&O Vital Signs Date Time Temp Pulse Resp B/P (MAP) Pulse Ox O2 Delivery O2 Flow Rate FiO2 03/14/20 06:00 97.5 78 19 142/80 (100) 99 Room Air I&O- Last 24 Hours up to 6 AM 03/14/20 05:59 Intake Total 1100 ml Balance 1100 ml Laboratory Data 24H LABS Laboratory Tests 2 03/13/20 18:22: Bedside Glucose (Misc Panel) 152H 03/14/20 06:53: Immature Granulocyte % (Auto) 0.8, Neutrophils (%) (Auto) 65.7, Lymphocytes (%) (Auto) 20.8L, Monocytes (%) (Auto) 10.1H, Eosinophils (%) (Auto) 2.4, Basophils (%) (Auto) 0.2, Neutrophils # (Auto) 5.4, Lymphocytes # (Auto) 1.7, Monocytes # (Auto) 0.8, Eosinophils # (Auto) 0.2, Basophils # (Auto) 0.0, Nucleated Red Blood Cells % (auto) 0.0, Anion Gap 5L, Glomerular Filtration Rate > 60.0, Calcium Level 9.0 CBC/BMP Laboratory Tests 03/14/20 06:53 Microbiology Microbiology 03/09/20 Blood Culture - Preliminary, Resulted No Growth after 72 hours. All specime... 03/09/20 Respiratory Virus Panel (PCR) ([facility]) - Final, Complete 03/09/20 Urine Culture - Final, Complete Enterococcus Faecalis STEPHAN WALKER MD Mar 14, 2020 11:19
[2020-03-14 14:00] VITALS: BP 116/78
[2020-03-14 22:00] VITALS: BP 119/69
[2020-03-15] MEDS: AMPICILLIN SOD 1 GM in D5W 50 ML IV SCH ×4 (01:16→20:34)
[2020-03-15 06:00] VITALS: BP 140/74
[2020-03-15 06:36] LABS: BASO % 0.3 % (0.0-1.0); EOS # 0.2 10^3/uL (0.0-0.5); EOS % 2.5 % (0.0-3.0); HEMATOCRIT 39.9 % (42.0-52.0); HEMOGLOBIN 13.1 g/dl (13.5-17.5); LYMPH # 2.2 10^3/uL (1.5-5.0); LYMPH % 24.4 % (24.0-44.0); MEAN CORPUSCULAR HEMOGLOBIN 28.5 pg (27.0-33.0); MEAN CORPUSCULAR HGB CONC 32.8 g/dl (32.0-36.5); MEAN CORPUSCULAR VOLUME 86.7 fl (80.0-96.0); MONO % 11.2 % (0.0-5.0); NEUTROPHILS # 5.4 10^3/uL (1.5-8.5); NEUTROPHILS % 60.7 % (36.0-66.0); PLATELET COUNT, AUTOMATED 211 10^3/uL (150-450); WHITE BLOOD COUNT 8.9 10^3/uL (4.0-10.0)
[2020-03-15 07:04] LABS: BLOOD UREA NITROGEN 21 MG/DL (7-18); CARBON DIOXIDE LEVEL 28 MEQ/L (21-32); CHLORIDE LEVEL 105 MEQ/L (98-107); CREATININE FOR GFR 0.87 MG/DL (0.70-1.30); GLOMERULAR FILTRATION RATE > 60.0 (>42); GLUCOSE, FASTING 154 MG/DL (70-100); POTASSIUM SERUM 4.1 MEQ/L (3.5-5.1); SODIUM LEVEL 139 MEQ/L (136-145)
[2020-03-15] MEDS: NYSTATIN 100,000 UNITS/GM TOPICAL PWD 15 GM TOP SCH ×2 (09:12→20:34)
[2020-03-15] MEDS: ENOXAPARIN 40MG/0.4ML SYRINGE (J1650 PER 10MG) SC SCH (09:12)
[2020-03-15] MEDS: GLIMEPIRIDE 2 MG TAB PO SCH ×2 (09:12→17:12)
[2020-03-15] MEDS: DOCUSATE SODIUM 100 MG CAP PO SCH ×2 (09:12→20:34)
--- NOTE | 2020-03-15 10:54 | IPNPDOC ---
Subjective Date Seen The patient was seen on 03/15/20. Subjective Chief Complaint/HPI Does not offer any complaints, good appetite, regular bowel movements. Working with PT. Objective Physical Examination General Exam: Positive: Alert, Cooperative, No Acute Distress Eye Exam: Positive: PERRLA, Conjunctiva & lids normal, EOMI; Negative: Sclera icteric ENT Exam: Positive: Atraumatic, Mucous membr. moist/pink, Pharynx Normal Neck Exam: Positive: Supple; Negative: JVD, thyromegaly Chest Exam: Positive: Clear to auscultation, Normal air movement Heart Exam: Positive: Rate Normal, Irregular Rhythm, Normal S1, Normal S2; Negative: Tachycardic, Bradycardic, Regular Rhythm, Gallops, Murmurs, Rubs Abdomen Exam: Positive: Normal bowel sounds, Soft; Negative: Tenderness, Hepatospenomegaly Extremity Exam: Negative: Clubbing, Cyanosis, Edema Skin Exam: Positive: Breakdown (on the scrotal skin at the bottom) Neuro Exam: Positive: Normal Speech, Strength at 5/5 X4 ext, Normal Tone Assessment /Plan Assessment 75 year old male with past medical history of CVA no residual weakness, diabetes, hypertension, right carotid endarterectomy who was at his trailer in [facility] where he fell down in the bathroom. He reports that he fell in the middle of night when he had gone to the bathroom. Says he was reaching for something and then he found himself on the floor. Denies loss of consciousness. Says he started calling for help when he heard his neighbor outside. Neighbors found him on the floor in the bathroom soiled in stool and urine and called the EMS. Work up in the ED showed elevated lactate, dehydration, UTI, elevated blood glucose. He was admitted for UTI, dehydration, acute metabolic encephalopathy. Patient has daughter Crystal lives in [place] . As per her patient has dementia. Dementia was very disheveled and soiled on presentation, Home dirty as per EMS. says eats at the diner or TV diners. lives alone [place] to help with discharge planning. UTI/ contaminated urine Dirty UA though denies any symptoms and was soiled when he came in. cultures E faecalis could be contamination however unsure so will treat. ampicillin Dehydration corrected Lactacidosis due to dehydration Acute metabolic encephalopathy on the back ground of dementia due to dehydration and possible infection As per Crystal his was diagnosed with dementia several years ago. Abnormal EKG afib vs sinus with PACs. There are lots of artifacts New EKG shows ectopic atrial rhythm. Telemetry in sinus rhythm now. ECHO: Study is of acceptable technical quality, the patient is in sinus rhythm. Normal LV size with mild left ventricular hypertrophy (LVH), preserved LV systolic function and grade 1 diastolic dysfunction. No hemodynamically significant valvular disease. Likely normal central venous pressure. Unable to estimate pulmonary artery pressure. Diabetes glimepiride Hypertension BP not elevated at present. no meds . Fall at home Generalized deconditioning and gait instability PT and OT Disposition: To continued rehab. Plan/VTE VTE Prophylaxis Ordered?: Yes VS, I&O, 24H, Fishbone Vital Signs/I&O Vital Signs Date Time Temp Pulse Resp B/P (MAP) Pulse Ox O2 Delivery O2 Flow Rate FiO2 03/15/20 06:00 98.6 79 18 140/74 (96) 96 Room Air I&O- Last 24 Hours up to 6 AM 03/15/20 06:00 Intake Total 720 ml Output Total 0 ml Balance 720 ml Laboratory Data 24H LABS Laboratory Tests 2 03/14/20 17:56: Bedside Glucose (Misc Panel) 199H 03/15/20 06:17: Immature Granulocyte % (Auto) 0.9, Neutrophils (%) (Auto) 60.7, Lymphocytes (%) (Auto) 24.4, Monocytes (%) (Auto) 11.2H, Eosinophils (%) (Auto) 2.5, Basophils (%) (Auto) 0.3, Neutrophils # (Auto) 5.4, Lymphocytes # (Auto) 2.2, Monocytes # (Auto) 1.0H, Eosinophils # (Auto) 0.2, Basophils # (Auto) 0.0, Nucleated Red Blood Cells % (auto) 0.0, Anion Gap 6L, Glomerular Filtration Rate > 60.0, Calcium Level 9.0 03/15/20 06:33: Bedside Glucose (Misc Panel) 145H CBC/BMP Laboratory Tests 03/15/20 06:17 Microbiology Microbiology 03/09/20 Blood Culture - Final, Complete NO GROWTH AFTER 5 DAYS 03/09/20 Respiratory Virus Panel (PCR) ([facility]) - Final, Complete 03/09/20 Urine Culture - Final, Complete Enterococcus Faecalis RAY,STEPHAN MD Mar 15, 2020 10:54
[2020-03-15 14:00] VITALS: BP 114/73
[2020-03-15 22:00] VITALS: BP 117/72
[2020-03-16] MEDS: AMPICILLIN SOD 1 GM in D5W 50 ML IV SCH ×4 (01:56→20:33)
[2020-03-16 06:00] VITALS: BP 126/72
[2020-03-16 06:59] LABS: BASO % 0.3 % (0.0-1.0); EOS # 0.2 10^3/uL (0.0-0.5); EOS % 2.1 % (0.0-3.0); HEMATOCRIT 41.8 % (42.0-52.0); HEMOGLOBIN 13.6 g/dl (13.5-17.5); LYMPH # 2.1 10^3/uL (1.5-5.0); LYMPH % 21.8 % (24.0-44.0); MEAN CORPUSCULAR HEMOGLOBIN 28.7 pg (27.0-33.0); MEAN CORPUSCULAR HGB CONC 32.5 g/dl (32.0-36.5); MEAN CORPUSCULAR VOLUME 88.2 fl (80.0-96.0); MONO # 0.8 10^3/uL (0.0-0.8); MONO % 8.9 % (0.0-5.0); NEUTROPHILS # 6.2 10^3/uL (1.5-8.5); NEUTROPHILS % 66.1 % (36.0-66.0); PLATELET COUNT, AUTOMATED 202 10^3/uL (150-450); RED BLOOD COUNT 4.74 10^6/uL (4.30-6.10); WHITE BLOOD COUNT 9.4 10^3/uL (4.0-10.0)
[2020-03-16 07:15] LABS: BLOOD UREA NITROGEN 19 MG/DL (7-18); CALCIUM LEVEL 8.6 MG/DL (8.8-10.2); CARBON DIOXIDE LEVEL 28 MEQ/L (21-32); CHLORIDE LEVEL 107 MEQ/L (98-107); CREATININE FOR GFR 0.68 MG/DL (0.70-1.30); GLOMERULAR FILTRATION RATE > 60.0 (>42); GLUCOSE, FASTING 151 MG/DL (70-100); POTASSIUM SERUM 3.9 MEQ/L (3.5-5.1); SODIUM LEVEL 142 MEQ/L (136-145)
[2020-03-16] MEDS: DOCUSATE SODIUM 100 MG CAP PO SCH ×2 (08:33→20:33)
[2020-03-16] MEDS: GLIMEPIRIDE 2 MG TAB PO SCH ×2 (08:33→18:18)
[2020-03-16] MEDS: NYSTATIN 100,000 UNITS/GM TOPICAL PWD 15 GM TOP SCH ×2 (08:34→20:33)
[2020-03-16] MEDS: ENOXAPARIN 40MG/0.4ML SYRINGE (J1650 PER 10MG) SC SCH (08:34)
[2020-03-16 14:00] VITALS: BP 128/74
--- NOTE | 2020-03-16 14:26 | IPNPDOC ---
Text Note Date of Service The patient was seen on 03/16/20. NOTE General: Patient denies any complaints. Chest pain, shortness of breath, palp itations. Objective Physical Examination General Exam: Positive: Alert, Cooperative, No Acute Distress HEENT: MMM; no JVD Chest Exam: Positive: Clear to auscultation, Normal air movement Heart Exam: Positive: Rate Normal, Irregular Rhythm, Normal S1, Normal S2; Negative: Tachycardic, Bradycardic, Regular Rhythm, Gallops, Murmurs, Rubs Abdomen Exam: Positive: Normal bowel sounds, Soft; Extremity Exam: Negative: Clubbing, Cyanosis, Edema Skin Exam: Positive: Breakdown (on the scrotal skin at the bottom) Neuro Exam: Positive: Normal Speech, Strength at 5/5 X4 ext, Normal Tone Assessment /Plan Assessment 75 year old male with past medical history of CVA no residual weakness, diabetes, hypertension, right carotid endarterectomy who was at his trailer in [facility] where he fell down in the bathroom. He reports that he fell in the middle of night when he had gone to the bathroom. Says he was reaching for something and then he found himself on the floor. Denies loss of consciousness. Says he started calling for help when he heard his neighbor outside. Neighbors found him on the floor in the bathroom soiled in stool and urine and called the EMS. Work up in the ED showed elevated lactate, dehydration, UTI, elevated blood glucose. He was admitted for UTI, dehydration, acute metabolic encephalopathy. Patient has daughter Crystal lives in [place] . As per her patient has dementia. Dementia was very disheveled and soiled on presentation, Home dirty as per EMS. says eats at the diner or TV diners. lives alone [place] to help with discharge planning. UTI/ contaminated urine Dirty UA though denies any symptoms and was soiled when he came in. cultures E faecalis could be contamination however unsure so will treat. ampicillin Dehydration corrected Lactacidosis due to dehydration Acute metabolic encephalopathy on the back ground of dementia due to dehydration and possible infection As per Crystal his was diagnosed with dementia several years ago. Abnormal EKG afib vs sinus with PACs. There are lots of artifacts New EKG shows ectopic atrial rhythm. Telemetry in sinus rhythm now. ECHO: Study is of acceptable technical quality, the patient is in sinus rhythm. Normal LV size with mild left ventricular hypertrophy (LVH), preserved LV systolic function and grade 1 diastolic dysfunction. No hemodynamically significant valvular disease. Likely normal central venous pressure. Unable to estimate pulmonary artery pressure. Diabetes glimepiride Hypertension BP not elevated at present. no meds . Fall at home Generalized deconditioning and gait instability PT and OT Disposition: Pending SNF placement VS,Fishbone, I+O VS, Fishbone, I+O Laboratory Tests 03/16/20 06:42 Vital Signs Date Time Temp Pulse Resp B/P (MAP) Pulse Ox O2 Delivery O2 Flow Rate FiO2 03/16/20 06:00 97.8 70 18 126/72 (90) 97 Room Air I&O- Last 24 Hours up to 6 AM 03/16/20 06:00 Intake Total 1400 ml Output Total 0 ml Balance 1400 ml AKIRA SORENSEN MD Mar 16, 2020 14:26
[2020-03-16 22:00] VITALS: BP 142/73
[2020-03-17] MEDS: AMPICILLIN SOD 1 GM in D5W 50 ML IV SCH ×4 (02:02→20:39)
[2020-03-17 05:00] VITALS: BP 150/82
[2020-03-17] MEDS: DOCUSATE SODIUM 100 MG CAP PO SCH ×2 (09:00→20:39)
[2020-03-17] MEDS: NYSTATIN 100,000 UNITS/GM TOPICAL PWD 15 GM TOP SCH ×2 (09:01→20:40)
[2020-03-17] MEDS: ENOXAPARIN 40MG/0.4ML SYRINGE (J1650 PER 10MG) SC SCH (09:01)
[2020-03-17] MEDS: GLIMEPIRIDE 2 MG TAB PO SCH ×2 (09:01→17:34)
--- NOTE | 2020-03-17 11:03 | IPNPDOC ---
Text Note Date of Service The patient was seen on 03/17/20. NOTE General: No acute changes overnight. No CP/SOB/palpitation. Objective Physical Examination General Exam: Positive: Alert, Cooperative, No Acute Distress HEENT: MMM; no JVD Chest Exam: Positive: Clear to auscultation, Normal air movement Heart Exam: Positive: Rate Normal, Irregular Rhythm, Normal S1, Normal S2; Negative: Tachycardic, Bradycardic, Regular Rhythm, Gallops, Murmurs, Rubs Abdomen Exam: Positive: Normal bowel sounds, Soft; Extremity Exam: Negative: Clubbing, Cyanosis, Edema Skin Exam: Positive: Breakdown (on the scrotal skin at the bottom) Neuro Exam: Positive: Normal Speech, Strength at 5/5 X4 ext, Normal Tone Assessment /Plan Assessment 75 year old male with past medical history of 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 He reports that he fell in the middle of night when he had gone to the bathroom. Says he was reaching for something and then he found himself on the floor. Denies loss of consciousness. Says he started calling for help when he heard his neighbor outside. Neighbors found him on the floor in the bathroom soiled in stool and urine and called the EMS. Work up in the ED showed elevated lactate, dehydration, UTI, elevated blood glucose. He was admitted for UTI, dehydration, acute metabolic encephalopathy. Patient has daughter Crystal lives in [place] . As per her patient has dementia. Dementia was very disheveled and soiled on presentation, Home dirty as per EMS. says eats at the diner or TV diners. lives alone PFS to help with discharge planning. UTI/ contaminated urine Dirty UA though denies any symptoms and was soiled when he came in. cultures E faecalis could be contamination however unsure so will treat. ampicillin Dehydration corrected Lactacidosis due to dehydration Acute metabolic encephalopathy on the back ground of dementia due to dehydration and possible infection As per Crystal his was diagnosed with dementia several years ago. Abnormal EKG afib vs sinus with PACs. There are lots of artifacts New EKG shows ectopic atrial rhythm. Telemetry in sinus rhythm now. ECHO: Study is of acceptable technical quality, the patient is in sinus rhythm. Normal LV size with mild left ventricular hypertrophy (LVH), preserved LV systolic function and grade 1 diastolic dysfunction. No hemodynamically significant valvular disease. Likely normal central venous pressure. Unable to estimate pulmonary artery pressure. Diabetes glimepiride Hypertension BP not elevated at present. no meds . Fall at home Generalized deconditioning and gait instability PT and OT Disposition: Pending SNF placement VS,Fishbone, I+O VS, Fishbone, I+O Vital Signs Date Time Temp Pulse Resp B/P (MAP) Pulse Ox O2 Delivery O2 Flow Rate FiO2 03/17/20 05:00 96.0 80 18 150/82 (104) 96 Room Air I&O- Last 24 Hours up to 6 AM 03/17/20 05:59 Intake Total 1550 ml Output Total 0 ml Balance 1550 ml AKIRA SORENSEN MD Mar 17, 2020 11:03
[2020-03-17 14:00] VITALS: BP 130/74
[2020-03-17 22:00] VITALS: BP 134/74
[2020-03-18] MEDS: AMPICILLIN SOD 1 GM in D5W 50 ML IV SCH ×2 (02:23→08:49)
[2020-03-18 06:00] VITALS: BP 138/71
[2020-03-18] MEDS: ENOXAPARIN 40MG/0.4ML SYRINGE (J1650 PER 10MG) SC SCH (08:49)
[2020-03-18] MEDS: DOCUSATE SODIUM 100 MG CAP PO SCH ×2 (08:49→20:26)
[2020-03-18] MEDS: GLIMEPIRIDE 2 MG TAB PO SCH ×2 (08:49→17:25)
[2020-03-18] MEDS: NYSTATIN 100,000 UNITS/GM TOPICAL PWD 15 GM TOP SCH ×2 (08:50→20:27)
--- NOTE | 2020-03-18 11:42 | IPNPDOC ---
Text Note Date of Service The patient was seen on 03/18/20. NOTE General: Pt denies any complaints. No CP/SOB/palpitation. No N/V/Abd pain. Objective Physical Examination General Exam: Positive: Alert, Cooperative, No Acute Distress HEENT: MMM; no JVD Chest Exam: Positive: Clear to auscultation, Normal air movement Heart Exam: Positive: Rate Normal, Irregular Rhythm, Normal S1, Normal S2; Negative: Tachycardic, Bradycardic, Regular Rhythm, Gallops, Murmurs, Rubs Abdomen Exam: Positive: Normal bowel sounds, Soft; Extremity Exam: Negative: Clubbing, Cyanosis, Edema Skin Exam: Positive: Breakdown (on the scrotal skin at the bottom) Neuro Exam: Positive: Normal Speech, Strength at 5/5 X4 ext, Normal Tone Assessment /Plan Assessment 75 year old male with past medical history of CVA no residual weakness, diabetes, hypertension, right carotid endarterectomy who was at his trailer in [facility] where he fell down in the bathroom. He reports that he fell in the middle of night when he had gone to the bathroom. Says he was reaching for something and then he found himself on the floor. Denies loss of consciousness. Says he started calling for help when he heard his neighbor outside. Neighbors found him on the floor in the bathroom soiled in stool and urine and called the EMS. Work up in the ED showed elevated lactate, dehydration, UTI, elevated blood glucose. He was admitted for UTI, dehydration, acute metabolic encephalopathy. Patient has daughter Crystal lives in [place] . As per her patient has dementia. Dementia was very disheveled and soiled on presentation, Home dirty as per EMS. says eats at the diner or TV diners. lives alone PFS to help with discharge planning. UTI/ contaminated urine Dirty UA though denies any symptoms and was soiled when he came in. cultures E faecalis could be contamination however unsure so will treat. ampicillin Dehydration corrected Lactacidosis due to dehydration Acute metabolic encephalopathy on the back ground of dementia due to dehydration and possible infection As per Crystal his was diagnosed with dementia several years ago. Abnormal EKG afib vs sinus with PACs. There are lots of artifacts New EKG shows ectopic atrial rhythm. Telemetry in sinus rhythm now. ECHO: Study is of acceptable technical quality, the patient is in sinus rhythm. Normal LV size with mild left ventricular hypertrophy (LVH), preserved LV systolic function and grade 1 diastolic dysfunction. No hemodynamically significant valvular disease. Likely normal central venous pressure. Unable to estimate pulmonary artery pressure. Diabetes glimepiride Hypertension BP not elevated at present. no meds . Fall at home Generalized deconditioning and gait instability PT and OT Disposition: Pending SNF placement VS,Fishbone, I+O VS, Fishbone, I+O Vital Signs Date Time Temp Pulse Resp B/P (MAP) Pulse Ox O2 Delivery O2 Flow Rate FiO2 03/18/20 06:00 98.0 72 18 138/71 (93) 95 03/17/20 14:00 Room Air I&O- Last 24 Hours up to 6 AM 03/18/20 05:59 Intake Total 1240 ml Balance 1240 ml AKIRA SORENSEN MD Mar 18, 2020 11:42
[2020-03-18 14:00] VITALS: BP 125/65
[2020-03-18] MEDS: MOM 30ML SUSPENSION UDC PO PRN (15:24)
[2020-03-18] MEDS: SENNA 8.6 MG TAB (SENOKOT) PO SCH (21:00)
[2020-03-18] MEDS ORDERED: MIRALAX *UNIT DOSE* 17GM PACKET PO PRN (21:30)
[2020-03-18 22:00] VITALS: BP 110/64
[2020-03-18] MEDS: RAMELTEON 8 MG TAB (ROZEREM) PO SCH (22:18)
[2020-03-19 06:00] VITALS: BP 162/81
[2020-03-19 06:34] LABS: HEMATOCRIT 41.8 % (42.0-52.0); HEMOGLOBIN 13.5 g/dl (13.5-17.5); MEAN CORPUSCULAR HEMOGLOBIN 28.6 pg (27.0-33.0); MEAN CORPUSCULAR HGB CONC 32.3 g/dl (32.0-36.5); MEAN CORPUSCULAR VOLUME 88.6 fl (80.0-96.0); PLATELET COUNT, AUTOMATED 213 10^3/uL (150-450); RED BLOOD COUNT 4.72 10^6/uL (4.30-6.10); WHITE BLOOD COUNT 7.9 10^3/uL (4.0-10.0)
[2020-03-19 07:04] LABS: BLOOD UREA NITROGEN 18 MG/DL (7-18); CARBON DIOXIDE LEVEL 27 MEQ/L (21-32); CHLORIDE LEVEL 106 MEQ/L (98-107); CREATININE FOR GFR 0.82 MG/DL (0.70-1.30); GLOMERULAR FILTRATION RATE > 60.0 (>42); GLUCOSE, FASTING 141 MG/DL (70-100); POTASSIUM SERUM 4.2 MEQ/L (3.5-5.1); SODIUM LEVEL 139 MEQ/L (136-145)
[2020-03-19] MEDS: GLIMEPIRIDE 2 MG TAB PO SCH ×2 (07:35→16:24)
[2020-03-19] MEDS: DOCUSATE SODIUM 100 MG CAP PO SCH ×2 (07:35→20:45)
[2020-03-19] MEDS: ENOXAPARIN 40MG/0.4ML SYRINGE (J1650 PER 10MG) SC SCH (07:36)
[2020-03-19] MEDS: NYSTATIN 100,000 UNITS/GM TOPICAL PWD 15 GM TOP SCH ×2 (07:36→20:49)
[2020-03-19 14:00] VITALS: BP 123/58
[2020-03-19] MEDS: SENNA 8.6 MG TAB (SENOKOT) PO SCH (20:49)
[2020-03-19] MEDS: RAMELTEON 8 MG TAB (ROZEREM) PO SCH (20:49)
[2020-03-19 22:00] VITALS: BP 111/68
[2020-03-20 06:00] VITALS: BP 152/83
[2020-03-20] MEDS: MOM 30ML SUSPENSION UDC PO PRN (08:09)
[2020-03-20] MEDS: GLIMEPIRIDE 2 MG TAB PO SCH ×2 (08:09→16:25)
[2020-03-20] MEDS: ENOXAPARIN 40MG/0.4ML SYRINGE (J1650 PER 10MG) SC SCH (08:09)
[2020-03-20] MEDS: DOCUSATE SODIUM 100 MG CAP PO SCH ×2 (08:09→20:06)
[2020-03-20] MEDS: NYSTATIN 100,000 UNITS/GM TOPICAL PWD 15 GM TOP SCH ×2 (08:09→20:06)
[2020-03-20 14:00] VITALS: BP 107/66
[2020-03-20] MEDS: SENNA 8.6 MG TAB (SENOKOT) PO SCH (20:05)
[2020-03-20] MEDS: RAMELTEON 8 MG TAB (ROZEREM) PO SCH (20:05)
[2020-03-20 22:00] VITALS: BP 107/63
[2020-03-21 06:00] VITALS: BP 123/76
[2020-03-21] MEDS: GLIMEPIRIDE 2 MG TAB PO SCH (07:52)
[2020-03-21] MEDS: NYSTATIN 100,000 UNITS/GM TOPICAL PWD 15 GM TOP SCH (07:53)
[2020-03-21] MEDS: ENOXAPARIN 40MG/0.4ML SYRINGE (J1650 PER 10MG) SC SCH (07:53)
[2020-03-21] MEDS: DOCUSATE SODIUM 100 MG CAP PO SCH (07:53)
[2020-03-21] MEDS ORDERED: AMAR1TAB5 PO (09:50)
[2020-03-21] MEDS ORDERED: RAME8TAB2 PO (09:50)
[2020-03-21] MEDS ORDERED: SENN18TA PO (09:50)
[2020-03-21] MEDS ORDERED: DOCU100C16 PO (09:50)
[2020-03-21] MEDS ORDERED: NYST10006 TOP (09:50)
--- NOTE | 2020-03-21 10:00 | DS.PDOC ---
Discharge Summary General Date of Admission Mar 09, 2020 at 16:26 Date of Discharge 03/21/20 Discharge Summary ADMITTING DIAGNOSES: Fall, suspected UTI DISCHARGE DIAGNOSES: Dementia COMPLICATIONS/CHIEF COMPLAINT: Altered Mental Status. HOSPITAL COURSE: 75 y/o with h/o CVA no residual weakness, diabetes, hypertension, right carotid endarterectomy who was at his trailer in [facility] where he fell down in the bathroom. He reported that he fell in the middle of night when he had gone to the bathroom. Says he was reaching for something and then he found himself on the floor. Denied loss of consciousness. Says he started calling for help when he heard his neighbor outside. Neighbors found him on the floor in the bathroom soiled in stool and urine and called the EMS. Work up in the ED showed elevated lactate, dehydration, UTI, elevated blood glucose. Pt was admitted for UTI, dehydration, suspected metabolic encephalopathy. Pt was treated with iv antibiotics, ivf. During hospital stay pt completed the course of iv antibiotics for suspected UTI. Imaging studies including CT head did not show any acute pathology. Over the course of treatment pt clinical condition improved. Pt was also evaluated by physical therapy and was stable to be discharged on SNF. During hospital stay pt did have few episodes of waning and waxing confusion- most probably related to dementia. Pt was seen and examined at bedside on day of discharge to SNF. Pt stated that he was feeling fine and did not have any complaint. Pt was clinically and vitally stable at the time of discharge. PHYSICAL EXAMINATION ON DISCHARGE: VITAL SIGNS: Please see below. GENERAL: Comfortable, HEENT: oral mucosa moist NECK: supple CARDIOVASCULAR EXAMINATION: regular, rate and rhythm RESPIRATORY EXAMINATION: clear to auscultation ABDOMINAL EXAMINATION: soft, normal bowel sounds EXTREMITIES: NO edema SKIN: intact, NEUROLOGICAL EXAMINATION: no focal deficit, AAAx 3 PSYCHIATRIC EXAMINATION: mood normal LABORATORY DATA: Please see below. IMAGING: CT head, CT abdomen/pelvis. ACTIVITY: [As tolerated]. DIET: diabetic diet DISCHARGE CONDITION: [Stable]. TIME SPENT ON DISCHARGE: 35 minutes. Pt will require o/p urology referral for BPH. Vital Signs/I&Os Vital Signs Date Time Temp Pulse Resp B/P (MAP) Pulse Ox O2 Delivery O2 Flow Rate FiO2 03/21/20 06:00 98.9 75 17 123/76 (92) 97 Room Air I&O- Last 24 Hours up to 6 AM 7/15/20 05:59 Intake Total 940 ml Output Total 0 ml Balance 940 ml Laboratory Data Labs 24H Laboratory Tests 2 03/20/20 16:37: Bedside Glucose (Misc Panel) 172H 03/21/20 05:59: Bedside Glucose (Misc Panel) 116H FSBS Laboratory Tests Test 03/20/20 16:37 03/21/20 05:59 Range/Units Bedside Glucose (Misc Panel) 172 116 83-110 MG/DL Microbiology Microbiology 03/20/20 Respiratory Virus Panel (PCR) (MONY) - Final, Complete Discharge Medications Scheduled Docusate Sodium (Docusate Sodium) 100 Mg Capsule, 100 MG PO BID Glimepiride (Amaryl) 2 Mg Tablet, 4 MG PO BID@0730,1730 Nystatin (Nystop) 60 Gm Powder, 1 DOSE TOP BID Ramelteon (Ramelteon) 8 Mg Tablet, 8 MG PO QHS Senna (Senna Lax) 8.6 Mg Tablet, 1 TAB PO QHS Allergies Coded Allergies: No Known Allergies (Unverified , 03/09/20) YAMILETH LANG MD Mar 21, 2020 10:00
== END 2020-03-21 13:36 | DRG 640 ==
LOC: M ED 11:29 → EDBD 11:29 → M ED INP 16:26 → ENRESERV 17:04 → M PCU 17:38 → M MSPAV 03-10 11:45
PROVIDERS: ADMIT Internal Medicine Nephrology; ATTEND Internal Medicine
DX: E86.0 Dehydration (principal); G93.41 Metabolic encephalopathy; N39.0 Urinary tract infection, site not specified; E87.2 Acidosis; F03.90 Unspecified dementia, unspecified severity, without behavioral disturbance, psychotic disturbance, mood disturbance, and anxiety; E11.9 Type 2 diabetes mellitus without complications; I10 Essential (primary) hypertension; Z86.73 Personal history of transient ischemic attack (TIA), and cerebral infarction without residual deficits; Z79.899 Other long term (current) drug therapy; K57.30 Diverticulosis of large intestine without perforation or abscess without bleeding; N40.0 Benign prostatic hyperplasia without lower urinary tract symptoms; Z95.2 Presence of prosthetic heart valve